=== PATIENT | male | born 1960 | race Caucasian/White ===

== ENCOUNTER 2018-11-14 08:43 | Outpatient (CLI) | payer OTHER ==
[~2018-11-14] VITALS: Ht 177.8 cm; Wt 81.8 kg
--- NOTE | ~2018-11-14 | HEMODYNAMI ---
PATIENT:TRAMAINE WOOD MEDICAL RECORD: [id number] : 56 LOCATION:[facility]I ADMISSION DATE: 11/14/18 Generatedon:11/14/201813:50 Patient name: TRAMAINE WOOD Patient #: [id number] SSN: : 1960 Date of study: 11/14/2018 Page: Of Hemodynamic Procedure Report Patient Data Patient Demographics Procedure consent was obtained First Name: TRAMAINE Gender: Male Last Name: NINA : 1960 Middle Initial: RAY Age: 58 year(s) Patient #: [id number] Race: Additional ID: [id number] Contact details Address: [address] [place] [address] State: [place] City: [place] Zip code: [address] Admission Admission Data Admission Date: 11/14/2018 Admission Time: 8:43 Admit Source: Emergency department Weight (lbs.): 180 Weight (kg.): 81.65 Current Diagnosis Diagnosis Description Stable angina Procedure Procedure Types Cath Procedure Diagnostic Procedure C [facility] w/Coronaries Procedure Description Procedure Date Procedure Date: 11/14/2018 Procedure Start Time: 13:41 Procedure End Time: 13:49 Procedure Staff Name Function Romaine Lam MD Performing Physician Zurdo Collins RT Monitor Myrna Centeno RT Scrub Nikia Moran RN Nurse Procedure Data Cath Procedure Fluoroscopy Diagnostic fluoroscopy Total fluoroscopy Time: 1.3 time: 1.3 min min Diagnostic fluoroscopy Total fluoroscopy dose: dose: 95.75 mGy 95.75 mGy Contrast Material Contrast Material Type Amount (ml) Isovue 300 41 Entry Location Entry Primary Successful Side Size Upsize Upsize Entry Closure Lewis ccessful Closure Location (Fr) 1 (Fr) 2 (Fr) Remarks Device Remarks Radial Right 6 Fr Mechanical artery Short Compression Estimated blood loss: 10 ml Diagnostic catheters Device Type Used For End Catheter Placement DIAGNOSTIC [place] 110cm 5 Procedure Fr catheter ([id number]) Procedure Medications Medication Administration Route Dosage Oxygen etCO2 Nasal cannula 2 l/min Lidocaine 2% added to field 20 Heparin Flush Bag added to field 2 bags (1000units/500ml NS) 0.9% NaCl I.V. 100 ml/hr Versed I.V. 2 mg Fentanyl I.V. 100 mcg Radial Cocktail I.A. 1 syringe (Verapomil 2mg/Nitro 400mcg/Heparin 1500units) Versed I.V. 2 mg Fentanyl I.V. 100 mcg Hemodynamics Rest Heart Rate: 68 (bpm) Pressure Samples Time Site Value (mmHg) Purpose Heart Use Rate(bpm) 13:43 LV 113/-1,0 Snapshot 92 Snapshots Pre Cath Intra NCS Post Cath Vital Signs Time Heart Resp SPO2 etCO2 NIBP (mmHg) Rhythm Pain Sedation Rate (ipm) (%) (mmHg) Status Level (bpm) 13:11:49 63 18 100 0 158/90(120) NSR 0 (11) 10(A) , No pain 13:16:04 70 19 96 0 155/91(107) NSR 0 (11) 10(A) , No pain 13:20:23 77 14 96 17.1 143/86(115) NSR 0 (11) 10(A) , No pain 13:24:38 69 13 100 11.9 141/82(115) NSR 0 (11) 10(A) , No pain 13:28:57 70 14 100 27.5 142/76(114) NSR 0 (11) 10(A) , No pain 13:33:15 70 15 100 20.1 141/81(115) NSR 0 (11) 10(A) , No pain 13:37:31 78 16 100 26 139/86(117) NSR 0 (11) 10(A) , No pain 13:41:49 72 12 97 30 129/75(97) NSR 0 (11) 9(A) , No pain 13:46:09 79 14 98 26.8 127/69(100) NSR 0 (11) 9(A) , No pain 13:48:49 78 14 100 14.1 124/70(96) NSR 0 (11) 10(A) , No pain Medications Time Medication Route Dose Verified Delivered Reason Notes Effectiveness by by 13:14:23 Oxygen etCO2 2 l/min Romaine Montejo used for Nasal Tauth MD Moran statistical geneticist cannula 13:14:29 Lidocaine 2% added 20ml Romaine Gavin for local to vial Caorle Lam MD anesthetic field 13:14:36 Heparin Flush added 2 bags Romaine Gavin used for Bag to Carole Lam MD procedure (1000units/500ml field NS) 13:14:47 0.9% NaCl I.V. 100 Romaine Montejo Per ml/hr Carole Moran RN physician 13:37:49 Versed I.V. 2 mg Romaine Montejo for sedation Carole Moran RN 13:37:55 Fentanyl I.V. 100 mcg Romaine Montejo for sedation Carole Moran RN 13:42:05 Versed I.V. 2 mg Romaine Gavin for sedation Carole Lam MD 13:42:08 Fentanyl I.V. 100 mcg Romaine Gavin for sedation Carole Lam MD 13:43:27 Radial Cocktail I.A. 1 Romaine Gavin for (Verapomil syringe Carole Lam MD vasodilation 2mg/Nitro 400mcg/Heparin 1500units) Procedure Log Time Note 12:58:53 Zurdo Collins RT(R) (CV) sent for patient. Start room use. 12:58:54 Time tracking: Regular hours (M-F 7:00 - 5:00) 12:58:58 Plan of Care:Hemodynamics will remain stable., Cardiac rhythm will remain stable., Comfort level will be maintained., Respiratory function will remain adequate., Patient/ family verbilizes understanding of procedure., Procedure tolerated without complication., Recovers from procedure without complications.. 13:02:13 Patient received from ED to CCL 3 Alert and oriented. Tansferred to table in Supine position. 13:02:14 Warm blankets applied, and max hugger turned on for patient comfort. 13:02:14 Correct patient and procedure confirmed by team. 13:02:15 Signed procedure consent form obtained from patient. 13:02:19 ECG and BP/O2 sat monitors applied to patient. 13:10:40 Vital chart was started 13:10:41 Baseline sample Acquired. 13:10:44 Rhythm: sinus rhythm 13:10:46 Full Disclosure recording started 13:10:50 H&P Date Dictated: 11/14/2018 New H&P dictated by physician.. 13:10:51 Pre-procedure instructions explained to patient. 13:10:52 Pre-op teaching completed and patient verbalized understanding. 13:10:53 Family in waiting room. 13:10:54 Patient NPO since Midnight. 13:10:56 Is the patient allergic to Iodine/contrast media? No. 13:10:57 Was the patient premedicated? No 13:10:59 Is patient on blood thinner?No 13:11:01 Patient diabetic? No. 13:11:03 Previous problem with sedation/anesthesia? No ? 13:11:05 Snore? Yes 13:11:07 Sleep apnea? No 13:11:08 Deviated septum? No 13:11:09 Opens mouth fully? Yes 13:11:09 Sticks out tongue? Yes 13:11:11 Airway obstruction? No ? 13:11:19 Dentures? Yes uppers in tight 13:11:42 Pre procedure: right posterior tibial pulse 2+ Normal; easily identifiable; not easily obliterated 13:11:48 Pre procedure: left posterior tibial pulse 2+ Normal; easily identifiable; not easily obliterated 13:11:51 Patient pain scale 0/10 ?. 13:11:57 IV patent on arrival in left forearm with 0.9% NaCl at [facility]. 13:12:00 Lab results completed and on chart. 13:12:04 Right Radial & Right Groin area was prepped with chlora-prep and draped in sterile fashion 13:12:05 Alarms reviewed by R. N. 13:12:05 Sharps counted by scrub and verified by R.N. 13:14:23 Oxygen 2 l/min etCO2 Nasal cannula was administered by Nikia Moran RN; used for procedure; 13:14:29 Lidocaine 2% 20ml vial added to field was administered by Romaine Lam MD; for local anesthetic; 13:14:36 Heparin Flush Bag (1000units/500ml NS) 2 bags added to field was administered by Romaine Lam MD; used for procedure; 13:14:47 0.9% NaCl 100 ml/hr I.V. was administered by Nikia Moran RN; Per physician; 13:20:35 Use device set Radial Dx or PCI 13:20:37 ACIST Syringe (48903) opened to sterile field. 13:20:38 Medline Cath Pack ([id number]) opened to sterile field. 13:20:39 Bag Decanter () opened to sterile field. 13:20:39 DIAGNOSTIC WIRE .035 260cm J wire (663862) opened to sterile field. 13:20:40 ACIST Hand Control (12330) opened to sterile field. 13:20:41 ACIST Manifold (08919) opened to sterile field. 13:20:41 Tegaderm 4 x 4 (1626W) opened to sterile field. 13:20:42 MBrace Wrist Support ([id number]) opened to sterile field. 13:20:46 TR BAND Large ([id number]) opened to sterile field. 13:20:48 SHEATH 6FR Slender (801060) opened to sterile field. 13:28:11 Zero performed for pressure channel P1 13:36:02 DR. LAM SEEING PATIENTS IN THE ED 13:36:34 Physician arrived 13:36:34 --------ALL STOP TIME OUT------ 13:36:35 Final Timeout: patient, procedure, and site verified with staff and physician. All members of the team are in agreement. 13:36:37 Right Radial & Right Groin site verified by team. 13:36:41 Physical assessment completed. ASA score P 2 - A patient with mild systemic disease as per Romaine Lam MD. 13:36:45 Sedation plan: IV Moderate Sedation Medication:Versed, Fentanyl 13:37:49 Versed 2 mg I.V. was administered by Nikia Moran RN; for sedation; 13:37:55 Fentanyl 100 mcg I.V. was administered by Nikia Moran RN; for sedation; 13:37:55 Diagnostic Cath Status : Elective 13:38:29 Patient Weight : 180 lbs 13:38:35 Admit Source: Emergency department 13:38:47 Current Diagnosis : Stable angina 13:41:02 Procedure started. 13:41:08 Local anesthetic to right radial artery with Lidocaine 2% by Romaine Lam MD.INITIAL ACCESS ONLY 13:41:57 A 6 Fr Short sheath was inserted into the Right Radial artery 13:41:57 A DIAGNOSTIC [place] 110cm 5 Fr catheter ([id number]) was advanced over the wire and used for Procedure. 13:42:05 Versed 2 mg I.V. was administered by Romaine Lam MD; for sedation; 13:42:08 Fentanyl 100 mcg I.V. was administered by Romaine Lam MD; for sedation; 13:43:20 LV gram done using BOWLING 13:43:27 Radial Cocktail (Verapomil 2mg/Nitro 400mcg/Heparin 1500units) 1 syringe I.A. was administered by Romaine Lam MD; for vasodilation; 13:43:29 EF : 60 % 13:43:31 LV hemodynamics recorded. 13:43:40 LCA angiography performed. 13:44:37 RCA angiography performed. 13:44:43 Catheter removed. 13:45:12 TR BAND Large ([id number]) opened to sterile field. 13:46:39 Sheath removed intact; hemostasis achieved with Mechanical Compression to the Right Radial artery. 13:46:44 Procedure ended.(Physican Out) 13:47:08 Fluoroscopy time 01.30 minutes. 13:47:14 Fluoroscopy dose: 95.75 mGy 13:47:14 Flurop Dose total: 95.75 13:47:28 Contrast amount:Isovue 300 41ml. 13:47:30 Sharps counted by scrub and verified by R.N. 13:47:33 TR band inflated with 12cc of air. 13:47:37 Insertion/operative site no bleeding no hematoma. 13:47:43 Post right radial artery:stable 13:47:46 Post Procedure Pulses reassessed and unchanged 13:47:59 Post procedure rhythm: sinus rhythm 13:48:04 Estimated blood loss: 10 ml 13:48:06 Post procedure instruction explained to patient.Patient verbalizes understanding. 13:48:07 Patient needs reinforcement of post procedure teaching. 13:49:09 Procedure and supply charges have been captured, reviewed, submitted and are correct. 13:49:13 Vital chart was stopped 13:49:13 See physician's report for complete and final results. 13:49:16 Report given to Pre/Post Procedure Room. 13:49:20 Patient transfered to Pre/Post Procedure Room with Stretcher. 13:49:24 Procedure ended. 13:49:24 Full Disclosure recording stopped 13:49:53 End room use (Document Last) Device Usage Item Name Manufacture Quantity Catalog Hospital Part Current Minimal Lot# / Number Charge Number Stock Stock Serial# Code ACIST Acist 1 80728 [id number] 20 [id number] Medline Medline 1 [id number] 818479 78611 497355 5 Cath Pack ([id number]) Bag Microtek 1 2001S 593601 06898 019907 5 Decanter [employer] Inc. () DIAGNOSTIC St [place] 1 [id number] 184115 650618 035962 30 WIRE .035 260cm J wire (131935) ACIST Hand Acist 1 57299 432718 726522 553464 5 Control Medical (15672) Systems Inc ACIST Acist 1 68006 446183 365741 195113 5 Manifold Medical (37855) Systems Inc Tegaderm 4 3M 1 1626W 704469 036155 845816 5 x 4 (1626W) MBrace Advanced 1 140-0250-00 448081 41101 700881 5 Wrist Vascular Support Dynamics ([id number]) TR BAND Terumo 2 [id number] 821194 026534 235878 40 Large ([id number]) SHEATH 6FR Terumo 1 [id number] 515232 904785 900071 5 Slender (80-1060) DIAGNOSTIC Terumo 1 40-8353 688849 026395 405888 5 [place] 110cm 5 Fr catheter (522459) Signature Audit [place] Stage Time Signature Unsigned Intra-Procedure 11/14/2018 Zurdo Collins 1:50:39 PM RT(R) (CV) Signatures Monitor : Zurdo Collins RT Signature : Date : Time : [facility] [address] [place] [address]
[2018-11-14 08:58] VITALS: Ht 177.8 cm; Wt 81.8 kg
[2018-11-14] MEDS ORDERED: PROSCAR5 MG PO (08:59)
[2018-11-14 09:21] LABS: BASOPHILS 0.4 % (0-2); EOSINOPHILS 1.8 % (0-7); HEMATOCRIT 43.3 % (42.0-54.0); HEMOGLOBIN 14.9 g/dL (13.5-17.5); IMMATURE GRANULOCYTES 0.4 % (0-5); LYMPHOCYTES 25.3 % (15-50); MCH 31.5 pg (26.0-34.0); MCHC 34.4 g/dL (31.0-37.0); MCV 91.5 fL (80.0-100.0); MEAN PLATELET VOLUME 9.9 fL (7.4-10.4); MONOCYTES 8.3 % (2-11); NEUTROPHILS 63.8 % (40-80); PLATELET COUNT 181 10x3/uL (130-400); RBC 4.73 10x6/uL (4.20-6.10); RDW 13.2 % (11.5-14.5); WBC 4.9 10x3/uL (4.8-10.8)
[2018-11-14 09:31] LABS: APTT 33.2 SECONDS (22.8-39.4); INR 0.98 (0.85-1.17); PROTIME 12.5 SECONDS (11.6-15.0)
[2018-11-14 09:34] LABS: ALBUMIN 3.7 g/dL (3.4-5.0); ALKALINE PHOSPHATASE 46 U/L (46-116); ALT (SGPT) 24 U/L (10-68); BILIRUBIN - TOTAL 0.38 mg/dL (0.2-1.3); CALC OSMOLALITY 282 mosm/kg (275-300); CALCIUM 8.6 mg/dL (8.5-10.1); CARBON DIOXIDE 24.7 mmol/L (21.0-32.0); CHLORIDE - SERUM 107 mmol/L (98-107); CREATININE - SERUM 1.1 mg/dL (0.6-1.3); GLUCOSE 94 mg/dL (74-106); PROTEIN - SERUM 7.8 g/dL (6.4-8.2); SODIUM 142 mmol/L (136-145); UREA NITROGEN 13 mg/dL (7-18); eGFR NON AFRICAN AMERICAN 72 mL/min (90-120)
[2018-11-14 09:46] LABS: CREATINE KINASE 110 UL (21-232); TROPONIN-I < 0.017 ng/mL (0.000-0.060)
[2018-11-14 12:30] VITALS: BP 147/92
--- NOTE | 2018-11-14 14:15 | NUR ---
PATIENT AWAKE, FAMILY AT BEDSIDE. VSS ON ROOM AIR. RIGHT TR BAND IN PLACE. NO C/O PAIN, NUMBNESS, OR TINGLING.
--- NOTE | 2018-11-14 14:45 | NUR ---
PATIENT AWAKE, EATING A TURKEY SANDWICH. BEGINNING AIR REMOVAL PROTOCOL FOR TR BAND, NO BLEEDING OR HEMATOMA NOTED. VSS ON ROOM AIR.
--- NOTE | 2018-11-14 15:15 | NUR ---
AIR REMOVED FROM TR BAND, NO BLEEDING OR HEMATOMA NOTED. EDUCATION REGARDING DISCHARGE INSTRUCTIONS GIVEN TO PATIENT AT THIS TIME, ALL QUESTIONS ANSWERED. VSS ON ROOM AIR. IV REMOVED AT THIS TIME.
--- NOTE | 2018-11-14 15:45 | NUR ---
RIGHT DRESSING IN PLACE IS CDI, NO BLEEDING OR HEMATOMA NOTED. PATIENT TRANSPORTED VIA WHEELCHAIR TO CAR WITH SPOUSE DRIVING, ALL BELONGINGS SENT WITH PATIENT.
--- NOTE | 2018-11-29 13:28 | OP ---
PATIENT NAME: TRAMAINE WOOD MEDICAL RECORD: [id number] :56 LOCATION:D.CAT ADMISSION DATE: SURGEON: HAWA HENDERSNO MD DATE OF OPERATION: 11/14/2018 PROCEDURES: 1. Left heart catheterization. 2. Selective coronary angiography. 3. Left ventriculogram. INDICATION: Chest pain compatible with angina. PROCEDURE IN DETAIL: After informed consent was obtained with detailed description of risks and benefits as well as alternative therapies, the patient elected to proceed with angiogram and heart catheterization. The right radial area was prepped and draped in normal sterile fashion. Right radial artery was cannulated via modified Seldinger technique with placement of 5-[place] sheath. All catheters were exchanged through this sheath. FINDINGS: Left ventriculogram performed in standard 30-degree BOWLING view reveals good cardiac wall motion throughout all segments. Overall ejection fraction estimated at 60%. SELECTIVE CORONARY ANGIOGRAPHY: Left main, left anterior descending, left circumflex, and right coronary are all smooth-walled vessels with no angiographic evidence of coronary artery disease. OVERALL IMPRESSION: 1. No angiographic evidence of coronary artery disease. 2. Normal left heart pressures. 3. Normal left ventricular systolic function. Chest pain is noncardiac in etiology. No further cardiac workup needs to be ascertained. TRANSINT:[id number] Voice Confirmation ID: [id number] DOCUMENT ID: [id number] HAWA HENDERSON MD at 1328 CC: [id number] DICTATION DATE: 11/14/18 1347 [facility] CLERK: 11/14/18 1810 [facility] CLI 11/14/18 [place] [id number] [place] [address]
--- NOTE | 2018-11-29 13:28 | CN ---
PATIENT NAME:TRAMAIEN WOOD MEDICAL RECORD: [id number] : 56 LOCATION:D.CAT ADMIT DATE: ACCOUNT: [id number] CONSULTING PHYSICIAN: HAWA HENDERSON MD REFERRING PHYSICIAN: HAWA HENDERSON MD DATE OF CONSULTATION: 11/14/2018 ADMITTING DIAGNOSES: 1. Chest pain compatible with unstable angina. 2. Family history of coronary artery disease. 3. Past smoking history. HISTORY OF PRESENT ILLNESS: This is a gentleman with no previous cardiac history, began having chest discomfort Wednesday. He has had multiple episodes. Initially, it was in the center of his chest, pressure sensation. Now, it is on the left side of his chest with radiation down his arm. He has had multiple episodes. PHYSICAL EXAMINATION: GENERAL APPEARANCE: Well-nourished, well-developed, appears stated age. Level of distress, comfortable. PSYCHIATRIC: Mental status, alert, normal affect. Orientation, oriented to time, place and person. EYES: Lids and conjunctiva, noninjected. No discharge, no pallor. ENT: Lips, teeth, gums, normal dentition. Oropharynx, no cyanosis, no pallor. NECK: Carotid arteries, bilateral normal upstroke, no bruits, no thrills. JUGULAR VEINS: No jugular venous pressure or distention. CERVICAL LYMPH NODES: Nontender, nonenlarged. THYROID: Not enlarged. Nontender. No nodules. LUNGS: Respiratory effort, unlabored. CHEST: Normal curvature. No thoracic deformity. No chest wall tenderness. Percussion, resonant. Auscultation, clear. No wheezes, no rales, no rhonchi. CARDIOVASCULAR: Precordial exam, nondisplaced. No heaves or pericardial thrills. Rate and rhythm, regular. Heart sounds, normal S1, normal S2. No S3, no gallop, no rub. Systolic murmur, not heard. Diastolic murmur, not heard. EXTREMITIES: No cyanosis, no edema. Peripheral pulses, full and equal in all extremities, except as noted. No bruits appreciated. ABDOMEN: Soft, nondistended. Normal aorta. No bruit. Nontender. No masses. Liver, nontender, no hepatomegaly. Spleen, nontender, no splenomegaly. MUSCULOSKELETAL: No joint tenderness. No joint swelling. No erythema. NEUROLOGICAL: Normal gait, normal strength, normal tone. SKIN: Warm and dry. OVERALL IMPRESSION: Angina in an unstable fashion. We will proceed with coronary angiography. Further care depends upon findings of the angiography. TRANSINT:[id number] Voice Confirmation ID: [id number] DOCUMENT ID: [id number] CONSULT REPORT [id number] TRAMAINE WOOD JEFFREY MD at 1328 CC: [id number] DICTATION DATE: 11/14/18 1117 FINANCIAL ANALYSIS ADVISOR: 11/14/18 1449 [facility] CLI 11/14/18 [facility] [address] [place] [address]
== END 2018-11-14 15:45 ==
LOC: D.CATH 08:43 → D.ER 08:43 → EDSTATUS 11:27 → D.CATH 15:45
PROVIDERS: Emergency Medicine
DX: R07.89 Other chest pain (principal); Z82.49 Family history of ischemic heart disease and other diseases of the circulatory system; Z87.891 Personal history of nicotine dependence